=== PATIENT | female | born 1945 | race Caucasian/White ===

== ENCOUNTER → 2016-03-18 | Outpatient (CLI) | payer OTHER ==
[~2016-03-18] MED LIST: ASPIRIN E.C.81 M2 PO; Colace PO; HYDROCHLOROTHIA25 MG PO; HYDRODIURIL,O12.5 M2 PO; IRON325 M1 PO; LO-DOSE ASPIRIN81 M1 PO; LOTENSIN20 M2 PO; LOTENSIN40 MG PO; MOBIC15 MG PO; Milk Of Magnesia,MOM PO; PRAVACHOL80 MG PO; PRILOSEC20 MG PO; Percocet 5/325,Endoc PO; Pravachol PO; TENORMIN100 M1 PO; TENORMIN100 MG PO; TIMOLOL MALEATE15 M1 BOTH EYES; Urecholine PO; VENTOLIN HFA18 GM IH; XALATAN2.5 ML BOTH EYES; XANAX0.25 MG PO
== END | disposition home or self-care (01) ==
DX: Z47.1 Aftercare following joint replacement surgery (principal); M25.562 Pain in left knee; M25.662 Stiffness of left knee, not elsewhere classified; R26.2 Difficulty in walking, not elsewhere classified; M62.89 Other specified disorders of muscle; Z96.652 Presence of left artificial knee joint
CPT/HCPCS: 97110 GP; 97150 GO; 97161 GP; 97165 GO; G8978 GP; G8979 GP; G8980 GP; G8987 GO; G8988 GO; G8989 GO

== ENCOUNTER 2016-03-31 07:59 | Inpatient (IN) | payer OTHER ==
[~2016-03-31] VITALS: Ht 127 cm; Wt 55.8 kg
[2016-03-31 10:55] VITALS: BP 170/80
[2016-03-31 17:05] VITALS: BP 180/80
[2016-03-31 18:36] LABS: INTER. NORMALIZED RATIO 1.1; PROTHROMBIN TIME 11.1 (9.2-11.2)
[2016-03-31 20:10] VITALS: BP 186/79
[2016-04-01] VITALS: BP 197/74
[2016-04-01 03:27] VITALS: BP 138/82
[2016-04-01 04:44] LABS: HEMATOCRIT 37.7 % (36.0-46.0); MCV 88.5 FL (83-99)
[2016-04-01 04:50] LABS: INTER. NORMALIZED RATIO 1.2; PROTHROMBIN TIME 11.8 (9.2-11.2)
[2016-04-01 04:55] LABS: CHLORIDE 98 mEq/L (99-109); POTASSIUM 3.6 mEq/L (3.7-5.4); SODIUM 134 mEq/L (136-147)
[2016-04-01 04:57] LABS: GLUCOSE 116 mg/dL (70-99)
[2016-04-01 04:58] LABS: ANION GAP 13 MEQ/L (2-14)
[2016-04-01 05:00] LABS: GFR ESTIMATE (CALCULATED) > 59 mL/min/
[2016-04-01 05:01] LABS: UREA NITROGEN (BUN) 15 mg/dL (9-23)
[2016-04-01 08:43] VITALS: BP 138/60
[2016-04-01 11:50] VITALS: BP 160/54
[2016-04-01 15:49] VITALS: BP 158/58
[2016-04-01] MEDS ORDERED: OXYCODONE HCL5 MG PO (17:57)
[2016-04-01] MEDS ORDERED: DOCUSATE SODIU100 MG PO (17:59)
[2016-04-01 19:00] VITALS: BP 176/75
[2016-04-02] VITALS: BP 128/97
[2016-04-02 06:56] LABS: MCV 86.5 FL (83-99)
[2016-04-02 07:33] LABS: INTER. NORMALIZED RATIO 3.2; PROTHROMBIN TIME 34.3 (9.2-11.2)
[2016-04-02 08:00] VITALS: BP 170/52
[2016-04-02 08:47] VITALS: BP 170/52
[2016-04-02 12:28] VITALS: BP 169/94
[2016-04-02] MEDS ORDERED: COUMADIN2.5 MG PO (14:25)
[2016-04-02 16:00] VITALS: BP 181/76
[2016-04-02 19:30] VITALS: BP 196/88
[2016-04-03] VITALS (7 sets, daily range): BP systolic 132–185; BP diastolic 62–85
[2016-04-03 06:50] LABS: PROTHROMBIN TIME 75.4 (9.2-11.2)
[2016-04-03 06:54] LABS: HEM NON-PRINT 2 NO CLOT OR LID
[2016-04-03 09:26] LABS: ANION GAP 12 MEQ/L (2-14); CHLORIDE 91 MEQ/L (99-109); GFR ESTIMATE (CALCULATED) > 59 mL/min/; GLUCOSE 112 mg/dL (70-99); POTASSIUM 4.3 MEQ/L (3.7-5.4); SAMPLE HEMOLYSIS CHECK 1; SAMPLE ICTERIC CHECK 0; SAMPLE LIPEMIA CHECK 0; SODIUM 129 MEQ/L (136-147); UREA NITROGEN (BUN) 16 mg/dL (9-23)
== END 2016-04-03 16:03 | DRG 470 ==
LOC: 2SOUTH 07:59 → 3WEST 09:08 → 2SOUTH 09:08 → 3WEST 16:53
PROVIDERS: Orthopaedic Surgery
PROC: 0SRD0J9 Replacement of Left Knee Joint with Synthetic Substitute, Cemented, Open Approach (ICD-10-PCS; principal; 2016-03-31)
DX: M17.12 Unilateral primary osteoarthritis, left knee (principal); M21.062 Valgus deformity, not elsewhere classified, left knee; E87.1 Hypo-osmolality and hyponatremia; R33.9 Retention of urine, unspecified; M25.562 Pain in left knee; I10 Essential (primary) hypertension; R73.03 Prediabetes; Z90.5 Acquired absence of kidney
CPT/HCPCS: 71010; 80048; 85014; 85018; 85610; 94760; 97530 GP; 99202; C1713; J0171; J0690; J1815; J1885; J2175; J2250; J2405; J2795; J3010; J7050; J7120

== ENCOUNTER 2016-05-07 17:42 | Emergency (ER) | payer OTHER ==
[~2016-05-07] VITALS: Ht 132.1 cm; Wt 50.5 kg
[~2016-05-07 17:42] MED LIST changes: +COUMADIN2.5 MG PO; +DOCUSATE SODIU100 MG PO; +OXYCODONE HCL5 MG PO
[2016-05-07 19:10] LABS: HEMATOCRIT 37.8 % (36.0-46.0); MCH 26.8 PG (29.0-34.0); MCHC 32.5 G/DL (30.0-36.0); MCV 82.4 FL (83-99); MEAN PLAT.VOLUME 11.6 uM^3 (9.5-12.4); PLATELET COUNT 261 K/uL (156-360); RBC DIS.WIDTH-CV 15.3 % (11.8-14.6); RBC DIS.WIDTH-SD 45.4 % (39-53); RED BLOOD COUNT 4.59 M/uL (3.80-5.20)
[2016-05-07 19:19] LABS: CHLORIDE 89 mEq/L (99-109); POTASSIUM 4.1 mEq/L (3.7-5.4); SODIUM 130 mEq/L (136-147)
[2016-05-07 19:22] LABS: ANION GAP 12 MEQ/L (2-14); GLUCOSE 162 mg/dL (70-99)
[2016-05-07 19:23] LABS: TOTAL BILIRUBIN 0.9 mg/dL (0.0-1.0)
[2016-05-07 19:24] LABS: ALKALINE PHOSPHATASE 114 IU/L (3-129)
[2016-05-07 19:25] LABS: GFR ESTIMATE (CALCULATED) > 59 mL/min/; WHITE BLOOD COUNT 27.3 K/uL (4.1-10.2)
[2016-05-07 19:26] LABS: UREA NITROGEN (BUN) 25 mg/dL (9-23)
[2016-05-07 19:52] LABS: HEMATOLOGY COMMENT 1 SMEAR COMPATIBLE
[2016-05-07] MEDS ORDERED: APRESOLINE25 MG PO (21:16)
[2016-05-07] MEDS ORDERED: URECHOLINE25 MG PO (21:17)
[2016-05-07] MEDS ORDERED: COUMADIN1 MG PO (21:18)
[2016-05-07] MEDS ORDERED: K-DUR20 MEQ PO (21:18)
[2016-05-07] MEDS ORDERED: TAMIFLU75 MG PO (21:19)
[2016-05-07] MEDS ORDERED: FLORASTOR250 MG PO (21:20)
[2016-05-07] MEDS ORDERED: OXAYDO5 MG PO (21:25)
[2016-05-07 21:51] LABS: INTER. NORMALIZED RATIO 2.3; PROTHROMBIN TIME 24.4 (9.2-11.2); PTT 32.5 (25-32)
[2016-05-08 03:33] VITALS: BP 127/55
== END 2016-05-08 03:34 | disposition short-term general hospital (02) ==
LOC: EME 17:42
PROVIDERS: Emergency Medicine
DX: K55.059 Acute (reversible) ischemia of intestine, part and extent unspecified (principal); J45.909 Unspecified asthma, uncomplicated; I10 Essential (primary) hypertension; K21.9 Gastro-esophageal reflux disease without esophagitis; Z96.659 Presence of unspecified artificial knee joint
CPT/HCPCS: 74177; 80053; 81003; 83605; 85027; 85610; 85730; 86850; 86900; 86901; 87040; 87493; 93005; 99281; 99285; J2543; J3370; J7030